=== PATIENT | male | born 1970 | race Caucasian/White ===

== ENCOUNTER 2017-02-02 07:49 | Emergency (ER) | payer MEDICAID ==
[~2017-02-02] VITALS: Ht 172.7 cm; Wt 83.9 kg
[~2017-02-02 07:49] MED LIST: ASPI81TA2 PO; LISI20TA61 PO; METO25TA20 PO
[2017-02-02 08:01] VITALS: BP 166/97
[2017-02-02] MEDS ORDERED: KETOROLAC TROMETHAMINE INJ 30 MG/ML VIAL ONE (08:49)
[2017-02-02] MEDS ORDERED: KETOROLAC TROMETHAMINE INJ 60 MG/2 ML VIAL IM ONE (09:00)
== END 2017-02-02 09:41 | disposition home or self-care (01) ==
LOC: ER 07:51
DX: M54.9 Dorsalgia, unspecified (principal); R51 Headache; I10 Essential (primary) hypertension; Z79.82 Long term (current) use of aspirin
CPT/HCPCS: 96372; 99283; A4606; J1885; Z7610

== ENCOUNTER 2018-08-23 17:45 | Emergency (ER) | payer MEDICAID ==
[~2018-08-23] VITALS: Ht 177.8 cm; Wt 90.7 kg
[~2018-08-23 17:45] MED LIST changes: +ASPI-1169 PO; -ASPI81TA2 PO
--- NOTE | 2018-08-23 18:08 | NUR ---
CAME IN FOR HEADACHE, GENERALIZED WEAKNESS X 2 DAYS. TO ER BED 10, HOOKED TO MONITOR, CHANGED TO GOWN, PROVIDED W WARM BLANKET, AWAITING MD MALDONADO
--- NOTE | 2018-08-23 18:42 | NUR ---
HONORIO MAZARIEGOS AT BEDSIDE
--- NOTE | 2018-08-23 19:10 | NUR ---
REPORT GIVEN TO MALINDA WILD FOR OTONIEL
--- NOTE | 2018-08-23 19:12 | NUR ---
PT RECIEVED FROM [facility] FOR OTONIEL. HONORIO MAZARIEGOS @ BEDSIDE. AWAITING ORDERS
[2018-08-23] MEDS ORDERED: ACETAMINOPHEN ES 500 MG TABLET ONE (19:26)
[2018-08-23] MEDS ORDERED: LORAZEPAM 0.5 MG TABLET ONE (19:26)
[2018-08-23] MEDS ORDERED: ACETAMINOPHEN 325 MG TABLET PO ONE (19:30)
[2018-08-23] MEDS ORDERED: LORAZEPAM 1 MG TABLET PO ONE (19:30)
--- NOTE | 2018-08-23 19:49 | NUR ---
Patient discharged to home in stable condition. Written and verbal after care instructions given. Patient verbalizes understanding of instruction.Pt ambulatory with a steady gait
[2018-08-23 19:51] VITALS: BP 143/93
== END 2018-08-23 19:52 | disposition home or self-care (01) ==
LOC: ER 17:45
DX: F10.239 Alcohol dependence with withdrawal, unspecified (principal); R51 Headache; I10 Essential (primary) hypertension; J45.909 Unspecified asthma, uncomplicated; R53.83 Other fatigue; Y90.9 Presence of alcohol in blood, level not specified; Z79.82 Long term (current) use of aspirin
CPT/HCPCS: 82962; 99283; J7030

== ENCOUNTER 2019-04-03 21:31 | Emergency (ER) | payer SELFPAY ==
[~2019-04-03] VITALS: Ht 172.7 cm; Wt 91.2 kg
[~2019-04-03 21:31] MED LIST changes: +LISI-604 PO; -LISI20TA61 PO
--- NOTE | 2019-04-03 22:15 | NUR ---
PT CAME TO ER BED 10 W/ C/O HIGH BLOOD PRESSURE. PT STATES HE HAS NOT BEEN COMPLIANT WITH HIS MEDICATIONS PRESCRIBED BY PCP. STATES THAT HE HAS BEEN HAVING HIGH BLOOD PRESSURE. PT ALSO C/O COUGH. 02 SAT AT 99%. AAOX4. NO SOB. BREATHING EVENLY AND UNLABORED. CONNECTED TO MONITOR.
--- NOTE | 2019-04-03 22:26 | NUR ---
BLOOD DRAWN AND SENT TO LAB
[2019-04-03] MEDS ORDERED: IV NS 0.9% 500 ML BAG IV ONE (22:30)
[2019-04-03 22:31] LABS: BASOPHILS # (AUTO) 0.1 /CMM (0.0-0.2); BASOPHILS % (AUTO) 1.2 % (0.0-2.0); EOSINOPHILS % (AUTO) 7.8 % (0.0-6.0); HEMATOCRIT 41 % (39-51); HEMOGLOBIN 13.5 g/dL (13.5-17.5); LYMPHOCYTES # (AUTO) 1.7 /CMM (0.8-4.8); MEAN CORPUSCULAR HGB CONC 33 g/dl (31.0-36.0); MEAN CORPUSCULAR VOLUME 86 fL (80-96); MONOCYTES # (AUTO) 0.9 /CMM (0.1-1.30); MONOCYTES % (AUTO) 15.9 % (2.0-12.0); NEUTROPHILS # (AUTO) 2.7 /CMM (1.8-8.9); NEUTROPHILS % (AUTO) 46.1 % (43.0-81.0); PLATELET COUNT (AUTO) 134 /CMM (150-450); RED BLOOD CELL COUNT(AUTO) 4.69 MIL/uL (4.5-6.0); WHITE BLOOD COUNT (AUTO) 5.8 K/uL (4.3-11.0)
[2019-04-03 22:41] LABS: CALCIUM, SERUM 8.5 mg/dL (8.5-10.1); CREATININE 0.9 mg/dL (0.6-1.3); POTASSIUM 3.3 mmol/L (3.5-5.1)
--- NOTE | 2019-04-03 22:47 | NUR ---
CLINICAL INFORMATION FAXED TO [facility]
[2019-04-03 22:53] LABS: ALBUMIN 3.6 g/dL (3.4-5.0); BILIRUBIN,DIRECT 0.1 mg/dL (0.0-0.2); BILIRUBIN,TOTAL 0.3 mg/dL (0.2-1.0); TOTAL PROTEIN, SERUM 7.1 g/dL (6.4-8.2)
[2019-04-03] MEDS ORDERED: METOPROLOL TARTRATE INJ 5 MG/5 ML AMPUL ONE (22:55)
[2019-04-03] MEDS ORDERED: ASPIRIN 325 MG TABLET ONE (22:55)
[2019-04-03] MEDS ORDERED: ASPIRIN 325 MG TABLET PO ONE (23:00)
[2019-04-03] MEDS ORDERED: METOPROLOL TARTRATE INJ 5 MG/5 ML AMPUL IVP ONE (23:00)
--- NOTE | 2019-04-03 23:03 | NUR ---
PER [facility], BAND TEACHER REVIEWED CLINICAL INFORMATION, NOT STEMI- WILL NOT TRANSFER PATIENT
--- NOTE | 2019-04-03 23:05 | NUR ---
CLINICAL INFORMATION FAXED TO [facility]
[2019-04-03 23:08] VITALS: BP 174/120
--- NOTE | 2019-04-03 23:10 | NUR ---
DR. PERRIN ON THE PHONE WITH [facility]
--- NOTE | 2019-04-03 23:17 | NUR ---
PT ACCEPTED BY DR. ROCHA AT [facility], CALLED 911 FOR TRANSPORTATION
--- NOTE | 2019-04-03 23:25 | NUR ---
GAVE REPORT TO [id number] FOR TRANSPORTATION
[2019-04-03 23:27] LABS: EOSINOPHILS % (MANUAL) 6 % (0-4); LYMPHOCYTES % (MANUAL) 27 % (16-48); MONOCYTES % (MANUAL) 17 % (0-11.0); NEUTROPHILS % (MANUAL) 50 (42-76)
--- NOTE | 2019-04-03 23:31 | NUR ---
REPORT GIVEN TO RAMON WILD FROM [facility] FOR OTONIEL
== END 2019-04-04 00:02 | disposition short-term general hospital (02) ==
LOC: ER 21:34
DX: I21.3 ST elevation (STEMI) myocardial infarction of unspecified site (principal); I10 Essential (primary) hypertension; J45.909 Unspecified asthma, uncomplicated; F10.10 Alcohol abuse, uncomplicated; Y90.9 Presence of alcohol in blood, level not specified; Z79.82 Long term (current) use of aspirin; Z79.899 Other long term (current) drug therapy
CPT/HCPCS: 36415; 71045; 80048; 80076; 83880; 84484; 85025; 85730; 93005 ×2; 96374; 99291; J3490; J7030

== ENCOUNTER 2021-04-18 17:18 | Inpatient (IN) | payer MEDICAID ==
[~2021-04-18] VITALS: Ht 177.8 cm; Wt 93.5 kg
[~2021-04-18 17:18] MED LIST changes: -LISI-604 PO; +LISI20TA31 PO
--- NOTE | 2021-04-18 17:18 | NUR ---
PT [facility] C/O HIGH BP AT 203/152MMHG. DENIES ANY CHEST PAIN. PT IS AAOX4, NOT IN RESPIRATORY DISTRESS, HOOKED TO GM, KEPT RESTED AND COMFORTABLE. WILL CONTINUE TO MONITOR.
--- NOTE | 2021-04-18 18:40 | NUR ---
IV LINE ESTABLISHED BLOOD DRAWN AND SENT TO LAB.
[2021-04-18] MEDS ORDERED: ASPIRIN 325 MG TABLET ONE (18:49)
--- NOTE | 2021-04-18 18:54 | NUR ---
CALLED [facility] [phone] ESCOBAR
--- NOTE | 2021-04-18 18:55 | NUR ---
FAXED EKG TO [facility] [phone] CONFIRMED WITH [facility] THAT THEY HAVE EKG. HE WILL CONTACT CARDIO
[2021-04-18] MEDS ORDERED: NITROGLYCERIN 0.4 MG/TAB BOTTLE ONE (18:57)
[2021-04-18] MEDS ORDERED: NITROGLYCERIN 0.4 MG/TAB BOTTLE SL ONE (19:00)
[2021-04-18] MEDS ORDERED: ASPIRIN 325 MG TABLET PO ONE (19:00)
[2021-04-18] MEDS ORDERED: HEPARIN SODIUM, PORCINE 5000 UNITS/1 ML VIAL IV ONE (19:00)
--- NOTE | 2021-04-18 19:00 | NUR ---
[facility] PAGED. DR. AVILA.
--- NOTE | 2021-04-18 19:02 | NUR ---
DR. AVILA SPEAKING WITH NICOLLE ALBERTO.
--- NOTE | 2021-04-18 19:03 | NUR ---
[facility] CALLED BACK DR. URBINA IS [employer] MANAGER [phone]
--- NOTE | 2021-04-18 19:07 | NUR ---
CALLED [facility] [phone] DR. URBINA SPEAKING WITH NICOLLE ALBERTO.
--- NOTE | 2021-04-18 19:19 | NUR ---
URINE COLLECTED AND COVID SWAB DONE AND SENT TO LAB
[2021-04-18 19:33] LABS: CALCIUM, SERUM 8.3 mg/dL (8.5-10.1); CARBON DIOXIDE 30 mmol/L (21-32); CHLORIDE 103 mmol/L (98-107); CREATININE 0.8 mg/dL (0.6-1.3); GLUCOSE 98 mg/dL (74-106); POTASSIUM 3.5 mmol/L (3.5-5.1); SODIUM SERUM 137 mmol/L (136-145); UREA NITROGEN, BLOOD 13 mg/dL (7-18)
[2021-04-18 19:45] LABS: BASOPHILS # (AUTO) 0.1 K/uL (0.0-0.2); BASOPHILS % (AUTO) 0.9 % (0.0-2.0); HEMATOCRIT 44 % (39-51); HEMOGLOBIN 14.7 g/dL (13.5-17.5); LYMPHOCYTES # (AUTO) 1.7 K/uL (0.8-4.8); LYMPHOCYTES % (AUTO) 24.9 % (20.0-44.0); MEAN CORPUSCULAR HGB CONC 34 g/dl (31.0-36.0); MEAN CORPUSCULAR VOLUME 87 fL (80-96); MONOCYTES # (AUTO) 0.6 K/uL (0.1-1.30); MONOCYTES % (AUTO) 8.9 % (2.0-12.0); NEUTROPHILS # (AUTO) 4.4 K/uL (1.8-8.9); NEUTROPHILS % (AUTO) 62.3 % (43.0-81.0); PLATELET COUNT (AUTO) 134 K/uL (150-450); RED BLOOD CELL COUNT(AUTO) 5.03 MIL/uL (4.5-6.0)
[2021-04-18] MEDS ORDERED: NTG 50 MG/D5W250 ML BOTTL 250 ML IV PRN ×2 (20:00→22:00)
[2021-04-18] MEDS ORDERED: HEPARIN INFUSION/D5W 500 ML IV ONE ×2 (20:00→20:05)
[2021-04-18] MEDS ORDERED: NTG 50 MG/D5W250 ML BOTTL 250 ML IV ONE (20:05)
[2021-04-18] MEDS ORDERED: HEPARIN SODIUM, PORCINE 5000 UNITS/1 ML VIAL ONE ×2 (20:05→20:10)
[2021-04-18 20:34] LABS: BILIRUBIN,URINE NEGATIVE (NEGATIVE); COLOR,URINE YELLOW (YELLOW); LEUKOCYTE ESTERASE ,URINE NEGATIVE (NEGATIVE); NITRITE, URINE NEGATIVE (NEGATIVE); PROTEIN,URINE NEGATIVE (NEGATIVE); UGLUCOSE NEGATIVE (NEGATIVE); UROBILINOGEN,URINE 0.2 EU/dL (0.2)
[2021-04-18] MEDS: HEPARIN SODIUM, PORCINE 5000 UNITS/1 ML VIAL IV ONE ×2 (20:40→20:41)
--- NOTE | 2021-04-18 20:40 | NUR ---
INITAITED NTG @ 5MCG/MIN LAC #18G S/L; PATENT AND INTACT. BP 192/147. HR 77. PT DENIES PAIN AT THIS TIME.
--- NOTE | 2021-04-18 21:25 | NUR ---
TITRATED NTG @ 10MCG/MIN LAC #18G S/L; PATENT AND INTACT. BP 184/133. HR 77. PT DENIES PAIN AT THIS TIME.
--- NOTE | 2021-04-18 21:30 | NUR ---
GUILLERMO DNP AT PT'S BEDSIDE
--- NOTE | 2021-04-18 21:55 | NUR ---
216 PER RN BRIDAL SALES CONSULTANT. Addendum: 04/18/21 at 2157 by RUSLAN PT GOING TO ROOM 260 ICU PER RN BRIDAL SALES CONSULTANT
[2021-04-18] MEDS ORDERED: MAG HYDROX/AL HYDROX/SIMETH 30 ML UDC PO PRN (22:00)
[2021-04-18] MEDS ORDERED: ACETAMINOPHEN 325 MG TABLET PO PRN (22:00)
[2021-04-18] MEDS ORDERED: Z GUARD REMEDY 4 OZ OINT TP PRN (22:00)
[2021-04-18] MEDS ORDERED: HEPARIN INFUSION/D5W 500 ML IV PRN (22:00)
[2021-04-18] MEDS ORDERED: MAGNESIUM HYDROXIDE 30 ML UDC PO PRN (22:00)
[2021-04-18] MEDS ORDERED: TEMAZEPAM 15 MG CAPSULE PO PRN (22:00)
[2021-04-18] MEDS ORDERED: MORPHINE SULFATE INJ 2 MG/ML DISP.SYRIN IV PRN (22:00)
--- NOTE | 2021-04-18 22:05 | NUR ---
ROOM 260 ICU
[2021-04-18] MEDS ORDERED: HYDROCODONE/APAP 5/325MG TABLET ONE (22:40)
[2021-04-18] MEDS: HYDROCODONE/APAP 5/325MG TABLET PO PRN (22:42)
--- NOTE | 2021-04-18 22:43 | NUR ---
TITRATED NTG @ 50MCG/MIN LAC #18G S/L; PATENT AND INTACT. BP 179/114. HR 83. PT C/O OF HEADACHE; ADMINISTERED NORCO 5-325MG PO PRN ORDERED
--- NOTE | 2021-04-18 22:49 | NUR ---
REPORT GIVEN TO JORGE FIBERGLASSER FOR OTONIEL. PT TRANSFERRING TO ICU VIA ACLS PROTOCOL; PT ON HEPARIN DRIP & NTG @50 MCG/MIN ORDERED. PT TOLERATING WELL.
[2021-04-18 23:00] VITALS: BP 186/140
--- NOTE | 2021-04-18 23:00 | NUR ---
BOX SHOOK PATCHER RCD PT FROM ER W/DX NSTEMI AND HYPERTENSIVE URGENCY; PT ADMITS TO MULTIPLE HOSPITAL VISITS FOR SAME COMPLAINT; PER PT HE DOES NOT COMPLY WITH MEDICATION REGIMEN JUST BECAUSE; PT ADMITS TO DRINKING APPROXIMATELY 12 BEERS PER WEEK. ALSO STATES HIS RIGHT FOOT IS BROKEN A PIECE OF METAL FELL ON IT YESTERDAY; PT STATES HE WENT TO CLINIC FOR BROKEN FOOT BUT NO FOLLOW UP TREATMENT AT THIS TIME.
[2021-04-18 23:30] VITALS: BP 156/108
--- NOTE | 2021-04-18 23:41 | NUR ---
DR. FARMER VERBAL ORDERED FOR R FOOT SPLINT. ENDORSED TO MACHINING AND ASSEMBLY SUPERVISOR
[2021-04-18 23:45] VITALS: BP 175/108
[2021-04-19] VITALS (34 sets, daily range): BP systolic 138–182; BP diastolic 89–135
--- NOTE | 2021-04-19 02:00 | NUR ---
CONTINUOUS WAVE OPERATOR PT C/O SEVERE HEADCHE DURING NITRO DRIP INFUSION; NORCO NOT YET DUE.
--- NOTE | 2021-04-19 04:00 | NUR ---
TELEVISION CAMERAMAN PT DENIES HEADACHE SINCE NITRO HAS BEEN TITRATED OFF
[2021-04-19 05:09] LABS: CALCIUM, SERUM 8.1 mg/dL (8.5-10.1); CREATININE 0.7 mg/dL (0.6-1.3); MAGNESIUM 2.3 mg/dL (1.8-2.4); PHOSPHORUS 2.3 mg/dL (2.5-4.9); POTASSIUM 3.5 mmol/L (3.5-5.1)
[2021-04-19 05:11] LABS: BASOPHILS % (AUTO) 0.3 % (0.0-2.0); EOSINOPHILS % (AUTO) 0.3 % (0.0-6.0); HEMATOCRIT 42 % (39-51); HEMOGLOBIN 14.1 g/dL (13.5-17.5); LYMPHOCYTES # (AUTO) 0.9 K/uL (0.8-4.8); LYMPHOCYTES % (AUTO) 9.6 % (20.0-44.0); MEAN CORPUSCULAR HGB CONC 34 g/dl (31.0-36.0); MEAN CORPUSCULAR VOLUME 87 fL (80-96); MONOCYTES # (AUTO) 0.3 K/uL (0.1-1.30); MONOCYTES % (AUTO) 3.5 % (2.0-12.0); NEUTROPHILS # (AUTO) 7.8 K/uL (1.8-8.9); NEUTROPHILS % (AUTO) 86.3 % (43.0-81.0); PLATELET COUNT (AUTO) 133 K/uL (150-450); RED BLOOD CELL COUNT(AUTO) 4.84 MIL/uL (4.5-6.0); WHITE BLOOD COUNT (AUTO) 9.1 K/uL (4.3-11.0)
[2021-04-19 05:17] LABS: THYROID STIMULATING HORMONE 0.408 uIU/mL (0.358-3.74)
--- NOTE | 2021-04-19 07:30 | NUR ---
RN NOTES PT FOUND SEMI FOWLERS DISPLAYING NO S/S OF DISTRESS, PT ENDORSES NO PAIN AND IS BREATHING EVEN AND UNLABORED ON RA. PT IS A&OX4, CALM AND COOPERATIVE. L AC 18G R AC 18G ARE PATIENT AND INTACT. NO S/S OF BLEEDING. VSS, RN WILL MONITOR AND TREAT THROUGHOUT SHIFT. SAFETY MEASURES IN PLACE, BED LOCKED AND IN LOWEST POSITION, SIDE RAILS UPX2, CALL LIGHT WITHIN REACH, PT INSTRUCTED TO CALL FOR ASSISTANCE.
[2021-04-19] MEDS: ASPIRIN 81 MG TAB.CHEW PO SCH (08:03)
[2021-04-19] MEDS: LISINOPRIL (20MG) 20 MG TABLET PO SCH (08:03)
[2021-04-19] MEDS: PANTOPRAZOLE 40 MG TABLET.DR PO SCH (08:03)
[2021-04-19] MEDS ORDERED: METOPROLOL TARTRATE 25 MG TABLET PO SCH ×3 (09:00→21:00)
[2021-04-19] MEDS ORDERED: CLONIDINE HCL 0.1 MG TABLET PO PRN (09:00)
[2021-04-19] MEDS: ATORVASTATIN 10 MG TABLET PO SCH (09:33)
[2021-04-19] MEDS: METOPROLOL TARTRATE 25 MG TABLET PO SCH ×2 (09:33→17:31)
[2021-04-19] MEDS: NITROGLYCERIN 30 GM TUBE TP SCH ×2 (09:34→20:56)
[2021-04-19] MEDS: hydrALAZINE HCL 50 MG TABLET PO SCH ×3 (09:34→17:30)
[2021-04-19] MEDS: ENOXAPARIN SODIUM 100 MG/ML DISP.SYRIN SQ SCH ×2 (09:36→20:55)
[2021-04-19] MEDS ORDERED: K PHOS NEUTRAL 250 MG TABLET PO ONE (10:00)
[2021-04-19] MEDS ORDERED: POTASSIUM CHLORIDE 20 MEQ TAB.PRT.SR PO SCH ×2 (10:00→13:00)
[2021-04-19] MEDS ORDERED: NITROGLYCERIN 0.4 MG/TAB BOTTLE SL PRN (10:30)
[2021-04-19] MEDS ORDERED: IV NS 0.9% 250 ML IV ONE (11:00)
[2021-04-19] MEDS ORDERED: IOHEXOL-350 100 ML VIAL IV ONE (11:00)
[2021-04-19] MEDS ORDERED: NITROGLYCERIN 0.4 MG/TAB BOTTLE ONE (11:15)
[2021-04-19] MEDS ORDERED: METOPROLOL TARTRATE INJ 5 MG/5 ML AMPUL ONE (11:16)
[2021-04-19] MEDS: METOPROLOL TARTRATE INJ 5 MG/5 ML AMPUL IVP PRN ×5 (11:22→11:42)
[2021-04-19] MEDS: HYDROCODONE/APAP 5/325MG TABLET PO PRN (12:24)
[2021-04-19] MEDS: ONDANSETRON HCL/PF 4 MG/2 ML VIAL IVP PRN (13:03)
--- NOTE | 2021-04-19 18:50 | NUR ---
TRANSFER TO ANIYAH RN TRANSFERRED PT TO TELE, GAVE REPORT TO CN. PT IS A&OX4, CALM AND COOPERATIVE, ENDORSING NO PAIN AND BREATHING EVEN AND UNLABORED ON RA. PT TRANSPORTED VIA HOSPITAL BED ON PORTABLE BEDSIDE MONITOR. SBAR AND CHART GIVEN TO ANIYAH STAFF. RX GIVEN WELL. ALL QUESTIONS ANSWERED. BELONGINGS REVIEWED AND TRANSFERRED WITH PT. PT ENDORSED IN STABLE CONDITION FOR OTONIEL.
--- NOTE | 2021-04-19 19:40 | NUR ---
RN NOTE RECEIVED PATIENT IN BED RESTING ALERT ORIENTED X4 VERBALLY RESPONSIVE ON ROOM AIR O2:97% IV SITE IS ON LEFT AC AND RIGHT AC INTACT PATENT,SAFETY MEASURE IMPLEMENT BED IN LOW POSITON AND LOCKED CALL LIGHT WITHIN REACH CONTINUE TO MONITOR.
[2021-04-20] VITALS: BP 151/110
[2021-04-20] MEDS: METOPROLOL TARTRATE 25 MG TABLET PO SCH ×2 (00:27→06:17)
[2021-04-20 04:00] VITALS: BP 139/86
[2021-04-20 06:18] LABS: BASOPHILS # (AUTO) 0.1 K/uL (0.0-0.2); BASOPHILS % (AUTO) 1.1 % (0.0-2.0); EOSINOPHILS % (AUTO) 0.9 % (0.0-6.0); HEMATOCRIT 41 % (39-51); HEMOGLOBIN 13.9 g/dL (13.5-17.5); LYMPHOCYTES # (AUTO) 1.5 K/uL (0.8-4.8); LYMPHOCYTES % (AUTO) 17.7 % (20.0-44.0); MEAN CORPUSCULAR HGB CONC 34 g/dl (31.0-36.0); MEAN CORPUSCULAR VOLUME 86 fL (80-96); MONOCYTES # (AUTO) 0.6 K/uL (0.1-1.30); MONOCYTES % (AUTO) 7.7 % (2.0-12.0); NEUTROPHILS # (AUTO) 6.1 K/uL (1.8-8.9); NEUTROPHILS % (AUTO) 72.6 % (43.0-81.0); PLATELET COUNT (AUTO) 126 K/uL (150-450); WHITE BLOOD COUNT (AUTO) 8.4 K/uL (4.3-11.0)
--- NOTE | 2021-04-20 06:57 | NUR ---
RN NOTE PATIENT REMAINS ON ALERT ORIENTEDX4 VERBALLY RESPONSIVE ON ROOM AIR O2;98% NO SOB NOT ACUTE DISTRESS NOTED,ALL DUE MEDS GIVEN MD ORDERED,ALL NEEDS MET ENDORSE NEXT COMING SHIFT FOR CONTINUATION OF CARE.
[2021-04-20 07:13] LABS: ALBUMIN 3.3 g/dL (3.4-5.0); BILIRUBIN,TOTAL 0.8 mg/dL (0.2-1.0); CALCIUM, SERUM 8.3 mg/dL (8.5-10.1); CREATININE 0.8 mg/dL (0.6-1.3); MAGNESIUM 2.2 mg/dL (1.8-2.4); PHOSPHORUS 2.8 mg/dL (2.5-4.9); POTASSIUM 3.6 mmol/L (3.5-5.1); TOTAL PROTEIN, SERUM 7.1 g/dL (6.4-8.2)
--- NOTE | 2021-04-20 07:25 | NUR ---
RN OPENING NOTES RECEIVED PATIENT IN BED, AWAKE, A/O X4, NO SIGNS OF ACUTE DISTRESS NOTED. REMAINS ON ROOM AIR, TOLERATING WELL. SPO2 @98 %, NO SOB NOTED, BREATHING EVEN AND UNLABORED. NO C/O PAIN AT THIS TIME. WITH IV ACCESS ON LAC AND RAC, INTACT AND PATENT, SALINE LOCKED. SAFETY MEASURES MAINTAINED. WILL CONTINUE TO MONITOR.
[2021-04-20 08:00] VITALS: BP 170/122
[2021-04-20] MEDS: PANTOPRAZOLE 40 MG TABLET.DR PO SCH (08:04)
[2021-04-20] MEDS: LISINOPRIL (20MG) 20 MG TABLET PO SCH (08:39)
[2021-04-20] MEDS: ASPIRIN 81 MG TAB.CHEW PO SCH (08:39)
[2021-04-20] MEDS: hydrALAZINE HCL 50 MG TABLET PO SCH ×3 (08:40→16:41)
[2021-04-20] MEDS: ISOSORBIDE DINITRATE (20MG) 20 MG TABLET PO SCH ×2 (08:40→16:40)
[2021-04-20] MEDS: ATORVASTATIN 10 MG TABLET PO SCH (08:41)
[2021-04-20] MEDS: METOPROLOL TARTRATE 50 MG TABLET PO SCH ×2 (08:41→16:41)
[2021-04-20 12:00] VITALS: BP 138/99
[2021-04-20 16:00] VITALS: BP 144/92
[2021-04-20 16:41] VITALS: BP 144/92
[2021-04-20] MEDS: HYDROCODONE/APAP 5/325MG TABLET PO PRN (17:36)
[2021-04-20] MEDS: ONDANSETRON HCL/PF 4 MG/2 ML VIAL IVP PRN (18:08)
--- NOTE | 2021-04-20 18:56 | NUR ---
MEDICAL DOCTOR MD NOTES PATIENT DISCHARGED HOME IN STABLE CONDITION. VITAL SIGNS TAKEN, STABLE AND RECORDED. ALL BELONGINGS ACCOUNTED FOR, VALUABLE FORM SIGNED BY PATIENT. IV ACCESS REMOVED, NO BLEEDING NOTED. ARM NAMEBAND REMOVED. DISCHARGE INSTRUCTIONS PROVIDED TO PATIENT, HEALTH TEACHINGS PROVIDED WITH VERBALIZATION OF UNDERSTANDING. SHORT CAM BOOT SENT WITH PATIENT. PATIENT LEFT UNIT @ 1850 ACCOMPANIED BY JADYN PATEL TO THE LOBBY VIA W/C. PATIENT'S PICKED UP PATIENT VIA PRIVATE CAR. CN AWARE OF DISCHARGE.
== END 2021-04-20 20:48 | disposition home or self-care (01) | DRG 199 ==
LOC: ER 17:21 → ICU 22:17 → TELE1 04-19 18:42 → MEDSG1 04-20 11:08
PROVIDERS: ADMIT Nurse Practitioner Acute Care; ATTEND Internal Medicine
DX: I16.0 Hypertensive urgency (principal); I21.A1 Myocardial infarction type 2; S92.354A Nondisplaced fracture of fifth metatarsal bone, right foot, initial encounter for closed fracture; E66.9 Obesity, unspecified; J45.909 Unspecified asthma, uncomplicated; X58.XXXA Exposure to other specified factors, initial encounter; Y92.89 Other specified places as the place of occurrence of the external cause; Z20.822 Contact with and (suspected) exposure to COVID-19; I10 Essential (primary) hypertension; Z91.14 Patient's other noncompliance with medication regimen; Z79.82 Long term (current) use of aspirin; Z79.899 Other long term (current) drug therapy; Z87.891 Personal history of nicotine dependence; W17.89XA Other fall from one level to another, initial encounter; Z68.28 Body mass index [BMI] 28.0-28.9, adult
CPT/HCPCS: 36415; 71045-TC; 73630-TC; 75574; 80048-TC; 80053-TC; 80061-TC; 83735-TC; 84100-TC; 84443-TC; 84484-TC; 85025-TC; 85730-TC; 86850-TC; 87081-TC; 93307-TC; C9803; G0378; J1644; J1650; J2405; J3490; J7050; Q9967